=== PATIENT | female | born 1950 ===

== ENCOUNTER 2022-09-30 13:26 | Observation (INO) | payer MEDICARE, BC ==
[2022-09-30 14:09] LABS: BASOPHILS PERCENT AUTO 0.4 % (0.0-1.5); EOSINOPHILS PERCENT AUTO 0.7 % (0.0-7.0); HEMATOCRIT 42.7 % (36.0-46.0); HEMOGLOBIN 14.4 g/dL (12.0-16.0); LYMPHOCYTES ABSOLUTE AUTO 2.4 K/uL (0.6-2.4); LYMPHOCYTES PERCENT AUTO 24.3 % (16.0-40.0); MEAN CORPUSCULAR HEMOGLOBIN 32.3 pg (27.0-32.0); MEAN CORPUSCULAR HGB CONC 33.7 g/dL (31.0-37.0); MEAN CORPUSCULAR VOLUME 95.7 fL (80.0-98.0); MONOCYTES PERCENT AUTO 8.1 % (0.0-15.0); NEUTROPHILS ABSOLUTE AUTO 6.7 K/uL (1.4-5.7); NEUTROPHILS PERCENT AUTO 66.5 % (48.0-80.0); PLATELET COUNT,PLT 313 K/uL (150-400); RED BLOOD CELL COUNT 4.46 M/uL (4.30-5.90)
[2022-09-30 14:10] LABS: EOSINOPHILS ABSOLUTE AUTO 0.1 K/uL (0.0-0.7); MONOCYTES ABSOLUTE AUTO 0.8 K/uL (0.0-0.8)
[2022-09-30 14:35] LABS: A/G RATIO 0.9 (0.9-1.6); ALBUMIN 3.7 g/dL (3.4-5.0); BILIRUBIN TOTAL 0.3 mg/dL (0.2-1.0); CARBON DIOXIDE,CO2 27.9 mmol/L (21.0-32.0); CREATININE 1.6 mg/dL (0.6-1.0); EST CRCL DRUG DOSING (CG) 29.31 mL/min; POTASSIUM,K 3.3 mmol/L (3.5-5.1); PROTEIN TOTAL,TP 7.7 g/dL (6.4-8.2)
[2022-09-30 14:58] LABS: TSH ULTRASENSITIVE 2.86 uIU/mL (0.36-3.74)
[2022-09-30] MEDS ORDERED: Sodium Chloride 0.9% 10 ML Syringe FLUSH PRN (17:00)
[2022-09-30] MEDS ORDERED: Sodium Chloride 0.9% 2.5 ML Syringe FLUSH PRN (17:00)
[2022-09-30] MEDS ORDERED: Potassium Chloride 20 MEQ Tab.ER PO ONE (17:20)
[2022-09-30] MEDS: Rivaroxaban 10 MG Tab PO SCH (17:34)
[2022-09-30] MEDS: Sertraline 50 MG Tab PO SCH (20:30)
[2022-09-30] MEDS: Topiramate 100 MG Tab PO SCH (20:30)
[2022-10-01 06:01] LABS: BASOPHILS PERCENT AUTO 0.4 % (0.0-1.5); EOSINOPHILS ABSOLUTE AUTO 0.1 K/uL (0.0-0.7); EOSINOPHILS PERCENT AUTO 0.9 % (0.0-7.0); HEMATOCRIT 41.7 % (36.0-46.0); HEMOGLOBIN 13.9 g/dL (12.0-16.0); LYMPHOCYTES ABSOLUTE AUTO 2.2 K/uL (0.6-2.4); LYMPHOCYTES PERCENT AUTO 25.7 % (16.0-40.0); MEAN CORPUSCULAR HEMOGLOBIN 32.2 pg (27.0-32.0); MEAN CORPUSCULAR HGB CONC 33.3 g/dL (31.0-37.0); MEAN CORPUSCULAR VOLUME 96.5 fL (80.0-98.0); MONOCYTES ABSOLUTE AUTO 0.9 K/uL (0.0-0.8); MONOCYTES PERCENT AUTO 10.2 % (0.0-15.0); NEUTROPHILS ABSOLUTE AUTO 5.4 K/uL (1.4-5.7); NEUTROPHILS PERCENT AUTO 62.8 % (48.0-80.0); PLATELET COUNT,PLT 278 K/uL (150-400); RED BLOOD CELL COUNT 4.32 M/uL (4.30-5.90); WHITE BLOOD CELL COUNT,WBC 8.55 K/uL (4.0-11.0)
[2022-10-01 06:23] LABS: CALCIUM 8.5 mg/dL (8.5-10.1); CREATININE 1.3 mg/dL (0.6-1.0); EST CRCL DRUG DOSING (CG) 36.08 mL/min; POTASSIUM,K 2.8 mmol/L (3.5-5.1)
[2022-10-01] MEDS ORDERED: Potassium Chloride 20 MEQ Tab.ER PO ONE (07:36)
[2022-10-01] MEDS: Diltiazem 180 MG Cap.CD PO SCH (08:40)
[2022-10-01] MEDS: Rivaroxaban 10 MG Tab PO SCH (08:40)
[2022-10-01] MEDS: Potassium Chloride 100 ML IV SCH ×2 (08:42→11:20)
[2022-10-01] MEDS ORDERED: Metoprolol Tartrate 25 MG Tab PO SCH (09:00)
[2022-10-01] MEDS ORDERED: carBAMazepine 200 MG Tab PO SCH (09:00)
[2022-10-01] MEDS: carBAMazepine 100 MG Tab.Chew PO SCH (10:34)
[2022-10-01] MEDS ORDERED: Rivaroxaban 10 MG Tab PO SCH (17:30)
[2022-10-01] MEDS: Metoprolol Tartrate 50 MG Tab PO SCH (18:57)
[2022-10-01] MEDS: Sertraline 50 MG Tab PO SCH (21:40)
[2022-10-01] MEDS: Topiramate 100 MG Tab PO SCH (21:40)
[2022-10-02 06:09] LABS: BASOPHILS PERCENT AUTO 0.4 % (0.0-1.5); EOSINOPHILS ABSOLUTE AUTO 0.2 K/uL (0.0-0.7); EOSINOPHILS PERCENT AUTO 1.9 % (0.0-7.0); HEMOGLOBIN 13.2 g/dL (12.0-16.0); LYMPHOCYTES ABSOLUTE AUTO 2.4 K/uL (0.6-2.4); LYMPHOCYTES PERCENT AUTO 30.5 % (16.0-40.0); MEAN CORPUSCULAR HEMOGLOBIN 32.4 pg (27.0-32.0); MEAN CORPUSCULAR VOLUME 98.3 fL (80.0-98.0); MONOCYTES ABSOLUTE AUTO 0.8 K/uL (0.0-0.8); NEUTROPHILS ABSOLUTE AUTO 4.5 K/uL (1.4-5.7); NEUTROPHILS PERCENT AUTO 57.2 % (48.0-80.0); PLATELET COUNT,PLT 257 K/uL (150-400); RED BLOOD CELL COUNT 4.07 M/uL (4.30-5.90)
[2022-10-02 06:19] LABS: CALCIUM 8.5 mg/dL (8.5-10.1); CARBON DIOXIDE,CO2 28.1 mmol/L (21.0-32.0); CREATININE 1.1 mg/dL (0.6-1.0); EST CRCL DRUG DOSING (CG) 42.64 mL/min; POTASSIUM,K 3.8 mmol/L (3.5-5.1)
[2022-10-02] MEDS: Metoprolol Tartrate 50 MG Tab PO SCH (06:37)
[2022-10-02] MEDS: Diltiazem 180 MG Cap.CD PO SCH (09:59)
[2022-10-02] MEDS: carBAMazepine 100 MG Tab.Chew PO SCH (10:01)
== END 2022-10-02 12:25 | disposition home or self-care (01) ==
LOC: MW.ED 13:26 → MW.MS 15:50
PROVIDERS: ADMIT Internal Medicine; ATTEND Internal Medicine
DX: E78.5 Hyperlipidemia, unspecified (principal); I10 Essential (primary) hypertension; I26.99 Other pulmonary embolism without acute cor pulmonale; I48.91 Unspecified atrial fibrillation; I49.5 Sick sinus syndrome; R06.02 Shortness of breath; F43.10 Post-traumatic stress disorder, unspecified; I27.20 Pulmonary hypertension, unspecified; E03.9 Hypothyroidism, unspecified; G43.909 Migraine, unspecified, not intractable, without status migrainosus; Z79.899 Other long term (current) drug therapy; Z79.890 Hormone replacement therapy; Z88.8 Allergy status to other drugs, medicaments and biological substances; Z98.890 Other specified postprocedural states; Z90.49 Acquired absence of other specified parts of digestive tract
CPT/HCPCS: 36415; 71045; 80048; 80053; 83735; 83880; 84132; 84443; 84484; 85025; 93005; 96365; 96366; 99285; A9270; G0378; J3480; 93010; 99222; 99232; 99239; 99283